=== PATIENT | male | born 1995 | race Two or more races ===

== ENCOUNTER 2023-02-26 18:50 | Emergency (ER) | payer OTHER ==
[~2023-02-26] VITALS: Ht 170.2 cm; Wt 56.8 kg
[2023-02-26 19:49] VITALS: BP 104/80; TEMP 97.9; O2SAT 97
== END 2023-02-26 19:30 ==
LOC: ER 18:52
DX: R45.1 Restlessness and agitation (principal)
CPT/HCPCS: A4606; A4663